=== PATIENT | male | born 1970 | race Caucasian/White ===

== ENCOUNTER 2019-04-22 15:18 | Emergency (ER) | payer MEDICAID ==
[~2019-04-22] VITALS: Ht 165.1 cm; Wt 104.3 kg
[2019-04-22 15:25] VITALS: Ht 165.1 cm; Wt 104.3 kg
[2019-04-22 16:33] LABS: BASOPHIL % 0.6 % (0-2); PLATELET COUNT 162 x10^3mcL (130-400)
[2019-04-22 17:01] LABS: ALBUMIN 2.1 g/dL (3.4-5.0); CARBON DIOXIDE 24.4 mmol/L (21-32); POTASSIUM SERUM 5.3 mmol/L (3.5-5.1); TOTAL PROTEIN, SERUM 6.8 g/dL (6.4-8.2)
[2019-04-22 17:02] LABS: BILIRUBIN TOTAL 0.43 mg/dL (0.20-1.00); CALCIUM 7.8 mg/dL (8.5-10.1)
[2019-04-22 17:04] LABS: CREATININE SERUM 4.9 mg/dL (0.7-1.3)
[2019-04-22 17:22] LABS: microscopic required? YES; urine erythrocyte 2+ (NEGATIVE)
[2019-04-22 17:49] VITALS: BP 117/80
== END 2019-04-22 18:37 | disposition home or self-care (01) ==
LOC: ED 15:18
PROVIDERS: Emergency Medicine
DX: R10.84 Generalized abdominal pain (principal); R11.2 Nausea with vomiting, unspecified; E11.22 Type 2 diabetes mellitus with diabetic chronic kidney disease; N18.9 Chronic kidney disease, unspecified; Z86.73 Personal history of transient ischemic attack (TIA), and cerebral infarction without residual deficits; Z87.19 Personal history of other diseases of the digestive system
CPT/HCPCS: J1940; J2405; J3490; J7030; Q0092